=== PATIENT | female | born 1970 | race American Indian/Alaskan Native ===

== ENCOUNTER 2017-01-19 08:12 | Outpatient (CLI) | payer BC ==
--- NOTE | 2017-01-19 14:23 | Treadmill Report ---
REASON FOR TEST: Palpitations. The patient exercised for 12 minutes of a Leobardo protocol, completing stage 4 and achieving 13 mets. Peak heart rate was 159 beats per minute. Peak blood pressure was 194 systolic. There was no chest pain. Test was stopped for fatigue. Baseline ECG was sinus rhythm. With exercise, no ST changes of ischemia. No significant dysrhythmias with excise. In recovery, occasional isolated PVCs were noted. CONCLUSION: 1. Excellent exercise capacity. 2. No chest pain. 3. No ST changes of ischemia. 4. No significant dysrhythmias. This is a normal exercise ECG test. JOB# [id number] CA/NTS
--- NOTE | 2017-01-20 15:46 | Mammography Report ---
BILATERAL MAMMOGRAM: FINDINGS: The breast tissue is heterogeneously dense, which could obscure detection of small masses (approximately 50%-75% glandular). No mass, distortion, suspicious calcification, or skin change is seen. Then no significant changes compared to studies dating back to 2014. CAD was utilized. IMPRESSION: Negative mammogram. There is no mammographic evidence of malignancy. RECOMMENDATION: Follow-up per ACS guidelines. BI-RADS CATEGORY: 1 = Negative ACR BI-RADS MAMMOGRAPHIC CODES: 0 = Needs additional imaging evaluation; 1 = Negative; 2 = Benign; 3 = Probably benign; 4 = Suspicious; 5 = Malignant; 6 = Known biopsy-proven malignancy COMMENT: 1. Dense breast tissue, i.e., adenosis, fibrocystic changes, etc., may obscure an underlying neoplasm. 2. Approximately 10% of cancers are not detected with mammography. 3. A negative mammography report should not delay biopsy if a clinically suspicious mass is present. COMMENT: Patient follow-up letters are generated in [employer].
== END 2017-01-19 08:13 | disposition home or self-care (01) ==
LOC: ECHO 08:12
PROVIDERS: ATTEND Internal Medicine
DX: Z12.31 Encounter for screening mammogram for malignant neoplasm of breast (principal)
CPT/HCPCS: 93017; 93306; G0202; 77067

== ENCOUNTER 2017-03-25 19:38 | Emergency (ER) | payer BC ==
[2017-03-25 19:51] VITALS: BP 143/103
--- NOTE | 2017-03-25 20:54 | Emergency Department Report ---
HPI - General Chief Complaint: Extremity Problem,Nontraumatic Time Seen by Provider: 03/25/17 20:22 - HPI HPI: 46-year-old female presents to ED complaining of left-sided neck and shoulder pain 3 days. Patient states pain is tingling in nature that radiates to her left upper arm. Patient's states she has not injured or experience any trauma to the arm or neck. Patient states ED Past Medical Hx - Past Medical History Previous Medical History?: Yes Hx Hypertension: Yes - Surgical History Past Surgical History?: Yes Additional Surgical History: C SECTION X 1 - Social History Smoking Status: Never Smoker Substance Use Type: None - Medications Home Medications: Home Medications Medication Instructions Recorded Confirmed Last Taken Type Cyclobenzaprine [Flexeril] 10 mg PO QHS PRN #20 tablet 03/25/17 Unknown Rx Ibuprofen [Motrin] 800 mg PO Q8HR PRN #30 tablet 03/25/17 Unknown Rx ED Review of Systems ROS: Stated complaint: LF NECK/ARM PAIN, NUMBNESS Other details as noted in HPI Constitutional: denies: chills, fever Eyes: denies: eye pain, eye discharge, vision change ENT: denies: ear pain, throat pain Respiratory: denies: cough, shortness of breath, wheezing Cardiovascular: denies: chest pain, palpitations Endocrine: no symptoms reported Gastrointestinal: denies: abdominal pain, nausea, diarrhea Genitourinary: denies: urgency, dysuria, discharge Musculoskeletal: denies: back pain, joint swelling, arthralgia Skin: denies: rash, lesions Neurological: denies: headache, weakness, paresthesias Psychiatric: denies: anxiety, depression Hematological/Lymphatic: denies: easy bleeding, easy bruising Physical Exam - Physical Exam Vital Signs: Vital Signs 03/25/17 19:44 Temperature 99.8 F H Pulse Rate 93 H Respiratory 18 Rate Blood Pressure 143/103 O2 Sat by Pulse 99 Oximetry Physical Exam: GENERAL: Alert and oriented x3, no apparent distress, Normal Gait, atraumatic. HEAD: Head is normocephalic and a-traumatic. NECK: Supple. Non edematous, No carotid bruits. No lymphadenopathy or thyromegaly. No C-spine tenderness, pain with movement of the neck to the right. No nuchal rigidity or tenderness. LUNGS: Symetrical with respiration, No wheezing, no rales or crackles, CTAB. HEART: S1, S2 present, regular rate and rhythm without murmur, no rubs, no gallops. ABDOMEN: No organomegaly was noted,Positive bowel sounds, soft, and non- distended. . Nontender to palpation on all Quadrants, NO CVA tenderness. EXTREMITIES/MUSCULOSKELETAL: No cyanosis, clubbing, rash, lesions or edema. Full ROM bilaterally. UE/LE Pulses 2+ bilaterally. LE and UE 5+ strength bilaterally. Tenderness to palpation of the shoulder region. NEUROLOGIC: The patient is cooperative with no focal neurologic deficits. Cranial nerves II through XII are grossly intact. Normal speech. PSYCHIATRIC: Mood is congruent with affect, denies suicidal or homicidal ideations. SKIN: Warm and dry, No lesions, No ulceration or induration present. ED Course Vital Signs 03/25/17 19:44 Temperature 99.8 F H Pulse Rate 93 H Respiratory 18 Rate Blood Pressure 143/103 O2 Sat by Pulse 99 Oximetry ED Medical Decision Making - Radiology Data Radiology results: report reviewed, image reviewed FINAL REPORT EXAM: CT CERVICAL SPINE WO CON HISTORY: NECK PAIN TECHNIQUE: CT imaging is acquired through the cervical spine without contrast. Transaxial, coronal and sagittal reformations are provided. PRIORS: None. FINDINGS: The cervical spine is intact. Vertebral body heights are preserved. No acute fracture or listhesis. Atlanto-dens interval and odontoid process are intact. Intervertebral disc spaces are mildly narrowed with associated endplate spondylosis at C4-C5. No perivertebral soft tissue swelling or hematoma identified. Limited soft tissue exam of the visualized neck is unremarkable. IMPRESSION: No acute cervical spine fracture identified. Correlate with physical exam and follow up as warranted.Consider additional imaging including CT chest and/or MRI cervical spine for worsening/persistent symptoms. Transcribed By: JEREMY Dictated By: KALA HENDRICKSON MD Electronically Authenticated By: KALA HENDRICKSON MD Signed Date/Time: 03/25/172135 - Medical Decision Making 46-year-old female presents with cervical writhing with pain/muscle strain of the neck Patient received Toradol in the ED. CT of the cervical spine was ordered. CT of the cervical spine shows no acute fracture or dislocation or any acute findings see above Patient states her arm feels a bit better after administration of Toradol. She is alert and oriented times 3 patient states she understands instructions given Discussed the patient and take medications prescribed. Discussed the patient is symptoms continue and worsens to return to nurse ED otherwise follow up with primary care physician. Vital signs are normal patient is in no acute distress. Critical care attestation.: If time is entered above; I have spent that time in minutes in the direct care of this critically ill patient, excluding procedure time. ED Disposition Clinical Impression: Myalgia, Cervical radiculopathy Disposition: DISCHARGED TO HOME OR SELFCARE Is pt being admited?: No Does the pt Need Aspirin: No Condition: Stable Instructions: Musculoskeletal Pain (ED), Trigger Point Pain (ED), Heat Pack Application (ED), Cervical Radiculopathy (ED) Additional Instructions: If pain worsens return to the nearest ED Follow-up with primary care physician. Taken medication as prescribed Prescriptions: Cyclobenzaprine [Flexeril] 10 mg PO QHS PRN #20 tablet PRN Reason: Muscle Spasm Ibuprofen [Motrin] 800 mg PO Q8HR PRN #30 tablet PRN Reason: Pain Referrals: PRIMARY CAREMD [Primary Care Provider] - 3-5 Days DION SINCLAIR MD [Staff Physician] - 3-5 Days [facility] [Outside] - 3-5 Days [facility] [Outside] - 3-5 Days Forms: Work/School Release Form(ED) Time of Disposition: 21:58
[2017-03-25] MEDS ORDERED: TORADOL IM ONE (21:12)
--- NOTE | 2017-03-25 21:40 | Cat Scan Report ---
FINAL REPORT EXAM: CT CERVICAL SPINE WO CON HISTORY: NECK PAIN TECHNIQUE: CT imaging is acquired through the cervical spine without contrast. Transaxial, coronal and sagittal reformations are provided. PRIORS: None. FINDINGS: The cervical spine is intact. Vertebral body heights are preserved. No acute fracture or listhesis. Atlanto-dens interval and odontoid process are intact. Intervertebral disc spaces are mildly narrowed with associated endplate spondylosis at C4-C5. No perivertebral soft tissue swelling or hematoma identified. Limited soft tissue exam of the visualized neck is unremarkable. IMPRESSION: No acute cervical spine fracture identified. Correlate with physical exam and follow up as warranted.Consider additional imaging including CT chest and/or MRI cervical spine for worsening/persistent symptoms.
== END 2017-03-25 22:14 | disposition home or self-care (01) ==
LOC: ED 19:38
DX: M54.12 Radiculopathy, cervical region (principal); M79.1 Myalgia; I10 Essential (primary) hypertension
CPT/HCPCS: 36415; 72125; 84703; 96372; 99284; J1885

== ENCOUNTER 2017-03-26 10:51 | Outpatient (CLI) | payer BC ==
--- NOTE | 2017-03-26 11:47 | XRay Report ---
LEFT SHOULDER: History: Left shoulder pain. Routine views demonstrate normal bony and soft tissue structures with normal joint alignment of the shoulder. IMPRESSION: Left shoulder within normal limits.
== END 2017-03-26 10:52 | disposition home or self-care (01) ==
LOC: XRAY 10:51
PROVIDERS: ATTEND Internal Medicine
DX: M25.512 Pain in left shoulder (principal)

== ENCOUNTER 2017-04-01 11:17 | Outpatient (CLI) | payer BC ==
--- NOTE | 2017-04-07 08:22 | Magnetic Resonance Report ---
FINAL REPORT PROCEDURE: MR UE JOINT LT WO CON TECHNIQUE: Axial gradient echo, sagittal proton density fat sat, and coronal proton density fat sat, T1 and T2 fat saturated images of the left shoulder were performed. HISTORY: PAIN IN LEFT SHOULDER COMPARISON: None FINDINGS: [id number] acromioclavicular joint DJD both due to fibrous overgrowth of the joint capsule as well as inferior worse than superior osseous spurring is present. There is mild downward tilt of the acromion. No impingement upon the rotator cuff is seen. There is mild glenohumeral joint DJD without tear the fibro cartilaginous labrum. There is a small effusion. Fluid within the bicipital tendon sheath is likely due to contiguous spread from superiorly. There is no suspected biceps tendinopathy or tendon tear. Increased intra substance signal without full-thickness tear is present of the supraspinatus and infraspinatus tendons at the mid and posterior aspect of the cuff. 5 millimeter subtle cyst is present of the superolateral humeral head. There is no pathologic fracture. There is no avulsion injury or intra-articular loose body. There is no abnormal signal intensity of the shoulder girdle musculature to suggest strain/hematoma. IMPRESSION: Distal mid and posterior rotator cuff tendinopathy with associated small effusion. No full-thickness rotator cuff tear. [id number] acromioclavicular joint DJD. Mild downward tilt of the acromion. Mild glenohumeral joint DJD without tear of the fibro cartilaginous labrum
== END 2017-04-01 11:18 | disposition home or self-care (01) ==
LOC: MRI 11:17
PROVIDERS: ATTEND Orthopaedic Surgery
DX: M75.102 Unspecified rotator cuff tear or rupture of left shoulder, not specified as traumatic (principal); M19.011 Primary osteoarthritis, right shoulder

== ENCOUNTER 2017-07-22 11:47 | Outpatient (CLI) | payer BC ==
[2017-07-22 12:06] LABS: Basophils % (Auto) 0.9 % (0.0-1.8); Eosinophils % (Auto) 3.1 % (0.0-4.3); Hematocrit 38.4 % (30.3-42.9); Hemoglobin 12.4 gm/dl (10.1-14.3); Mean Corpuscular HGB Conc 32 % (30-34); Mean Corpuscular Hemoglobin 26 pg (28-32); Mean Corpuscular Volume 81 fl (79-97); Platelet Count 277 K/mm3 (140-440); Red Blood Count 4.76 M/mm3 (3.65-5.03); Red Cell Distribution Width 14.2 % (13.2-15.2)
== END 2017-07-22 11:48 | disposition home or self-care (01) ==
LOC: LAB 11:47
DX: Z01.419 Encounter for gynecological examination (general) (routine) without abnormal findings (principal); Z78.0 Asymptomatic menopausal state
CPT/HCPCS: 36415; 83001; 84443; 85025

== ENCOUNTER 2017-12-01 14:43 | Outpatient (CLI) | payer BC ==
[2017-12-01 15:45] LABS: Basophils # (Auto) 0.1 K/mm3 (0.0-0.1); Basophils % (Auto) 1.2 % (0.0-1.8); Eosinophils # (Auto) 0.1 K/mm3 (0.0-0.4); Eosinophils % (Auto) 2.2 % (0.0-4.3); Hematocrit 40.5 % (30.3-42.9); Hemoglobin 13.2 gm/dl (10.1-14.3); Lymphocytes # (Auto) 3.1 K/mm3 (1.2-5.4); Lymphocytes % (Auto) 47.8 % (13.4-35.0); Mean Corpuscular HGB Conc 33 % (30-34); Mean Corpuscular Hemoglobin 26 pg (28-32); Mean Corpuscular Volume 80 fl (79-97); Monocytes # (Auto) 0.4 K/mm3 (0.0-0.8); Monocytes % (Auto) 5.9 % (0.0-7.3); Platelet Count 256 K/mm3 (140-440); Red Blood Count 5.06 M/mm3 (3.65-5.03); Red Cell Distribution Width 13.7 % (13.2-15.2)
[2017-12-01 15:57] LABS: Bacteria,Urine 1+ /HPF (Negative); Bilirubin,Urine NEG (Negative); Blood,Urine SM (Negative); Color,Urine Yellow (Yellow); Mucus,Urine FEW /HPF; Nitrite,Urine NEG (Negative); Protein,Urine <15 mg/dL mg/dL (Negative)
[2017-12-01 16:09] LABS: Chol/HDL Ratio 3.7 %
== END 2017-12-01 14:44 | disposition home or self-care (01) ==
LOC: CARD 14:43
PROVIDERS: ATTEND Internal Medicine
DX: Z00.00 Encounter for general adult medical examination without abnormal findings (principal); I51.7 Cardiomegaly
CPT/HCPCS: 36415; 80061; 81001; 83036; 84443; 85025; 93005; 93010

== ENCOUNTER 2018-01-05 14:18 | Outpatient (CLI) | payer BC ==
[2018-01-05 15:04] LABS: Alanine Aminotransferase 51 units/L (7-56); Albumin 4.6 g/dL (3.9-5); BUN/Creatinine Ratio 13; Blood Urea Nitrogen 8 mg/dL (7-17); Calcium 9.3 mg/dL (8.4-10.2); Hemolysis Index 5
--- NOTE | 2018-01-05 15:16 | XRay Report ---
Chest 2 views: History: Cough. Findings: Normal cardiomediastinal silhouette the trachea is midline. No consolidation, pneumothorax or pleural effusion. Impression: No acute cardiopulmonary findings.
== END 2018-01-05 14:19 | disposition home or self-care (01) ==
LOC: XRAY 14:18
PROVIDERS: ATTEND Internal Medicine
DX: Z00.00 Encounter for general adult medical examination without abnormal findings (principal); R05 Cough
CPT/HCPCS: 36415; 71046; 80053